=== PATIENT | male | born 1995 | race Caucasian/White ===

== ENCOUNTER 2017-07-15 12:00 | Emergency (ER) | payer OTHER ==
--- NOTE | 2017-07-15 12:19 | ER Document Report ---
ED Psych Disorder / Suicide - General Chief Complaint: Psych Problem Stated Complaint: PSYCH EVAL Time Seen by Provider: 07/15/17 12:17 Notes: 21-year-old male patient with suicidal ideation, wants mental health evaluation and treatment. I have greeted and performed a rapid initial assessment of this patient. A comprehensive ED assessment and evaluation of the patient, analysis of test results and completion of the medical decision making process will be conducted by additional ED providers. TRAVEL OUTSIDE OF THE [place] IN LAST 30 DAYS: No - Related Data Allergies/Adverse Reactions: No Known Allergies Allergy (Unverified 07/15/17 12:13) Physical Exam - Vital signs Vitals: Temp Pulse Resp BP Pulse Ox 98.3 F 89 18 135/78 H 97 07/15/17 12:06 07/15/17 12:06 07/15/17 12:06 07/15/17 12:06 07/15/17 12:06 Course - Vital Signs Vital signs: Temp Pulse Resp BP Pulse Ox 98.3 F 89 18 135/78 H 97 07/15/17 12:06 07/15/17 12:06 07/15/17 12:06 07/15/17 12:06 07/15/17 12:06
[2017-07-15 12:45] LABS: ABSOLUTE MONOCYTES (AUTO) 0.4 10^3/uL (0.1-1.4); ABSOLUTE NEUT (AUTO) 4.1 10^3/uL (1.7-8.2); BASOPHILS % (AUTO) 0.3 % (0-2); EOSINOPHILS % (AUTO) 0.4 % (0-6); HEMATOCRIT 42.9 % (37.9-51.0); HEMOGLOBIN 14.9 g/dL (13.5-17.0); LYMPHOCYTES % (AUTO) 18.5 % (13-45); MEAN CORPUSCULAR HEMOGLOBIN 29.1 pg (27.0-33.4); MEAN CORPUSCULAR HGB CONC 34.8 g/dL (32.0-36.0); MEAN CORPUSCULAR VOLUME 84 fl (80-97); MONOCYTES % (AUTO) 6.9 % (3-13); PLATELET COUNT 239 10^3/uL (150-450); RED BLOOD COUNT 5.12 10^6/uL (4.35-5.55); RED CELL DISTRIBUTION WIDTH 12.8 % (11.5-14.0); SEGMENTED NEUTROPHILS % (AUTO) 73.9 % (42-78); TOTAL CELLS COUNTED % (AUTO) 100 %; WHITE BLOOD COUNT 5.5 10^3/uL (4.0-10.5)
[2017-07-15 13:02] LABS: ACETAMINOPHEN < 10 ug/mL (10-30); ALANINE AMINOTRANSFERASE 31 U/L (21-72); ALBUMIN 5.1 g/dL (3.5-5.0); ALCOHOL < 10 mg/dL (NONE DETECTED); ALKALINE PHOSPHATASE 43 U/L (38-126); ANION GAP 11 (5-19); ASPARTATE AMINO TRANSFERASE 24 U/L (17-59); BILIRUBIN,DIRECT 0.4 mg/dL (0.0-0.4); BILIRUBIN,TOTAL 1.1 mg/dL (0.2-1.3); BLOOD UREA NITROGEN 15 mg/dL (7-20); CALCIUM 10.5 mg/dL (8.4-10.2); CARBON DIOXIDE 28 mmol/L (22-30); CHLORIDE 105 mmol/L (98-107); GLUCOSE 123 mg/dL (75-110); POTASSIUM 4.2 mmol/L (3.6-5.0); SALICYLATE < 1.0 mg/dL (2.0-20.0); SODIUM 143.9 mmol/L (137-145); TOTAL PROTEIN 7.7 g/dL (6.3-8.2)
[2017-07-15 13:21] LABS: APPEARANCE,URINE CLEAR; BILIRUBIN,URINE NEGATIVE (NEGATIVE); COLOR,URINE AMBER; GLUCOSE, URINE NEGATIVE (NEGATIVE); KETONES,URINE TRACE mg/dL (NEGATIVE); LEUKOCYTE ESTERASE,URINE NEGATIVE (NEGATIVE); NITRITE,URINE NEGATIVE (NEGATIVE); PROTEIN,URINE NEGATIVE (NEGATIVE); URINE SPECIFIC GRAVITY 1.024
--- NOTE | 2017-07-15 13:30 | ER Document Report ---
ED Psych Disorder / Suicide - General Mode of Arrival: Ambulatory Information source: Patient TRAVEL OUTSIDE OF THE [place] IN LAST 30 DAYS: No - HPI Patient complains to provider of: Suicidal ideation Onset: This morning Onset was: Gradual Quality of pain: No pain Suicide Risk Factors: Male, Substance abuse Associated symptoms: Anxious, Depressed Similar symptoms previously: Yes - LIFELONG, OFF & ON Recently seen / treated by doctor: No <ROSS DOUGLASS - Last Filed: 07/15/17 13:27> <GRADY KHAN - Last Filed: 07/16/17 13:29> - General Chief Complaint: Psych Problem Stated Complaint: PSYCH EVAL Time Seen by Provider: 07/15/17 12:17 - Related Data Allergies/Adverse Reactions: No Known Allergies Allergy (Unverified 07/15/17 12:13) Past Medical History - General Information source: Patient - Social History Smoking Status: Current Every Day Smoker Chew tobacco use (# tins/day): No Smoking Education Provided: No Frequency of alcohol use: Rare Drug Abuse: Marijuana Lives with: Friend Family History: None Patient has suicidal ideation: Yes Patient has homicidal ideation: Yes - Past Medical History Cardiac Medical History: Reports: None Pulmonary Medical History: Reports: None EENT Medical History: Reports: None Neurological Medical History: Reports: None Endocrine Medical History: Reports: None Renal/ Medical History: Reports: None. Denies: Hx Peritoneal Dialysis Malignancy Medical History: Reports None GI Medical History: Reports: Other - GASTROPARESIS, YRS AGO, RESOLVED Musculoskeltal Medical History: Reports None Psychiatric Medical History: Reports: Hx Depression Traumatic Medical History: Reports: None Surgical Hx: Negative <EVONNEROSS - Last Filed: 07/15/17 13:27> Review of Systems - Review of Systems Constitutional: No symptoms reported EENT: No symptoms reported Cardiovascular: No symptoms reported Respiratory: No symptoms reported Gastrointestinal: No symptoms reported Genitourinary: No symptoms reported Musculoskeletal: No symptoms reported Skin: No symptoms reported Neurological/Psychological: See HPI <ROSS DOUGLASS - Last Filed: 07/15/17 13:27> Physical Exam - Vital signs Interpretation: Normal - General General appearance: Appears well, Alert In distress: None - HEENT Head: Normocephalic Eyes: Normal Conjunctiva: Normal Ears: Normal Nasal: Normal Mouth/Lips: Normal Mucous membranes: Normal - Respiratory Respiratory status: No respiratory distress Breath sounds: Normal - Cardiovascular Rhythm: Regular Heart sounds: Normal auscultation Murmur: No - Abdominal Inspection: Normal Distension: No distension Bowel sounds: Normal - Back Back: Normal - Extremities General upper extremity: Normal inspection General lower extremity: Normal inspection - Neurological Neuro grossly intact: Yes Cognition: Normal Orientation: AAOx4 - Psychological Associated symptoms: Anxious - Skin Skin Temperature: Warm Skin Moisture: Dry Skin Color: Normal Skin Turgor: Elastic <ROSS DOUGLASS - Last Filed: 07/15/17 13:27> - Vital signs Vitals: Temp Pulse Resp BP Pulse Ox 98.3 F 89 18 135/78 H 97 07/15/17 12:06 07/15/17 12:06 07/15/17 12:06 07/15/17 12:06 07/15/17 12:06 Course - Laboratory Result Diagrams: 07/15/17 12:33 07/15/17 12:33 <ROSS DOUGLASS - Last Filed: 07/15/17 13:27> - Laboratory Result Diagrams: 07/15/17 12:33 07/15/17 12:33 <GRADY KHAN - Last Filed: 07/16/17 13:29> - Vital Signs Vital signs: Temp Pulse Resp BP Pulse Ox 97.3 F 67 16 125/71 99 07/16/17 07:00 07/16/17 07:00 07/16/17 07:00 07/16/17 07:00 07/16/17 07:00 - Laboratory Laboratory results interpreted by me: 07/15/17 07/15/17 12:33 13:05 Glucose 123 H Calcium 10.5 H Albumin 5.1 H Urine Ketones TRACE H Urine Urobilinogen 4.0 H Salicylates < 1.0 L Acetaminophen < 10 L Discharge <ROSS DOUGLASS - Last Filed: 07/15/17 13:27> <GRADY KHAN - Last Filed: 07/16/17 13:29> - Discharge Clinical Impression: Substance abuse Condition: Stable Disposition: HOME, SELF-CARE Additional Instructions: DEPRESSION: Your evaluation reveals that you have mental depression. While symptoms may be vague, they often include disturbance of sleep, fatigue, loss of appetite , and general loss of interest in life. While depression may be a side effect of drugs, or a reaction to a major change in your life, many cases have no known cause. If depression is acute, and related to a major loss in your life, you can expect it to clear completely with time. If you have been depressed a long time , are prone to repeated bouts of depression or low mood, or have been thinking of suicide, get help. Depression can be treated with anti-depressant medication and counselling. Long-term depression will often take a few weeks to clear, even with appropriate medication. Follow-up care is important. FOLLOW-UP CARE You are recommended to follow through with your substance abuse treatment plan with [facility].~ If you experience worsening or a significant change in your symptoms, notify the physician immediately or return to the Emergency Department at any time for re-evaluation.
[2017-07-15 13:40] LABS: URINE AMPHETAMINES SCREEN NEGATIVE; URINE BARBITURATES SCREEN NEGATIVE; URINE BENZODIAZEPINES SCREEN NEGATIVE; URINE COCAINE SCREEN NEGATIVE; URINE MARIJUANA (THC) SCREEN UNCONFIRMED POSITIVE; URINE METHADONE SCREEN NEGATIVE; URINE PHENCYCLIDINE SCREEN NEGATIVE
[2017-07-15] MEDS ORDERED: NICOTINE 21 MG/24 HR PATCH.TD24 TD ONE ×3 (15:28→20:19)
--- NOTE | 2017-07-15 15:56 | PSYCHOLOGICAL NOTE ---
Psych Note - Psych Note Psych Note: Reason for evaluation: Suicidal Ideation Eval: 3:00 pm Final Disposition Contact Permissions: Cal Malhotra ( Patient's mother) [phone] [facility] ( [address]; their fax number is [phone]) Patient is a 21-year-old male. Patient reports he was brought in by his boss from the [facility]. Patient reports he was speaking with his mother yesterday evening about all of his "thoughts", and she stated he should get help. Patient reports he was having suicidal thoughts while at home and curled up into a ball and sat in the corner. Patient reports he then called his mom who is a emergency room nurse that lives in [place]. Patient reports he received a diagnosis around 8-9 years ago for chronic depression. Patient reports he was in the but is now out and stayed in [facility]. Patient reports alcoholism runs in his family. Patient reports as a child he was on Adderall for around 5-12 years for ADHD. Patient reports he did not want to take them and stopped taking them because he was tired of being different. Patient reports he has never been to an inpatient psychiatric hospital. Patient reports he describes himself at this moment as being in a state of "monumental sadness". Patient reports he does not want to be sad anymore because his sadness turns into anger. Patient stated "I want to be the man I want to be I am tired of putting on a faade". Patient reports he feels as if everything is his fault and that he is always trying hard for everything to look normal. Patient reports when one thing happens everything comes crashing down. Patient reports his mother thinks that it is due to all the losses he has experienced growing up. Patient reports that he is too easily influenced and intuitive, and described himself as a "liar". Patient reports he feels responsible for people's happiness. Patient reports his mother told him this is the first step to getting help. Patient reports it is difficult talking about his feelings. Patient reports several years ago he jumped off a 3 story building in [facility] and stated nothing happened to him, and he was not sent anywhere for having the suicidal attempt. Collateral information: Cal malhotra (patient's mother) [phone] Patient's mother reports patient is limited in what he says to her. Patient's mother reports patient suffers from depression and anxiety and states it was "really bad" 9 years ago when he had his first episode after his grandfather . Patient's mother reports she feels patient has some underlying issues from not working out the of his aunt who 8 years ago from alcoholism. Patient's mother reports patient was really close to both his aunt and grandfather. Patient's mother reports patient has had a hard time dealing with getting out of the [employer] a year ago and homelessness. Patient's mother reports patient was having to couch surf for 6 months after getting out of the [employer]. Patient's mother reports patient sometimes slept on the street but stated that he wanted to make it on his own and did not know where to go for help while in [place]. Patient's mother reports patient admitted to her that he smokes weed on a regular basis and tells her it is for medicinal purposes to treat his own depression anxiety. Patient's mother reports she has been working behind the scenes because she feels her son is self-medicating and states that she talked to [facility] intake person John who is in [place] and states that all he needs to do is make a phone call they will do the interview and then pick him up from [facility]. Patient's mother reports patient has admitted to her recently that he was suicidal in the past and stated he wanted to drown himself in the bathtub but could not do it because he wanted to be here for his mom and could not do that to her. Patient's mother reports it is really hard for patient to ask for help it is a huge deal for him. Patient's mother reports patient has a history of alcohol abuse and used to drink to where he blacked out and could not remember that he got into fights. Patient's mother reports patient told her he stopped drinking in February of last year but is not sure if patient has been honest about his drinking. Patient's mother reports that when he was 12 years old he tried an antidepressant and refused to take it. Patient's mother reports she felt her son "grew out of his ADHD "as he was prescribed Adderall as a child. Patient's mother reports that last night she asked him if he was suicidal and he told her her was one step away but did not know which direction he would take. Patient's mother reports that she feels patient is overwhelmed with everything. Patient's mother reports she feels his primary area that he needs help in is substance abuse. Patient's mother reports patient needs to complete an intake with [facility] in [place]. Diagnosis: Per Hx 311 ( F32.9) Unspecified Depressive Disorder Per Hx 300.00 ( F41.9) Unspecified Anxiety Disorder 292.9 ( F19.99) unspecified other substance related disorder Impression/Plan: Recommendation for patient to be transferred to a substance use / mental health facility ( dual diagnosis) . Clinician coordinated with unit coordinator at [facility] ( [place]). The unit coordinator stated they are completing the assessment over the telephone with the patient, and stated mom agreed to work out financials before transport is arranged. According to unit coordinator, patient would not be transported until tomorrow. Clinician observed patient is tearful, and anxious apologizing repeatedly to clinician for asking for help. Clinician observed patient's history of depression and current substance abuse is suitable for a dual diagnosis facility, patient is able to voluntarily transition into the Recovery facility. Physician in agreement with plan. Consulted with Dr. Arreaga regarding the management and care of patient.
--- NOTE | 2017-07-15 16:42 | EKG REPORT ---
SEVERITY:- NORMAL ECG - SINUS RHYTHM : Confirmed by: Keely Walters 15-Jul-2017 16:41:23
[2017-07-15] MEDS ORDERED: HYDROXYZINE PAMOATE 50 MG CAPSULE PO ONE (23:16)
[2017-07-16 07:11] VITALS: BP 125/71
--- NOTE | 2017-07-16 09:11 | PSYCHOLOGICAL NOTE ---
Psych Note - Psych Note Psych Note: Reason for evaluation: Suicidal Ideation Contact Permissions: Cal Malhotra ( Patient's mother) [phone] [facility] ( [address]; their fax number is [phone]) Clinician conducted checking with patient Patient disclosed that he is feeling better today; however, states "I am used to the curve... I am just waiting for the re-curve... I do not know if I am strong enough for the next time." Patient describes long-standing depression with the use of substances in attempt to self medicate. He continued disclosed that when he is depressed and you offer him any type of drug he will not hesitate to use it. When he is not feeling depressed he may sit and think about if he wants to do or not. Patient does not verbalize or indicate any feelings of ever denying flat out the want to use substances if offered. Patient is demonstrating some psychomotor agitation which includes shaking his leg and fixing organizing his room. Patient verbalizes some anxiety and nervousness on seeking help "this is a big step... I am really scared... But I know I need to fight this.... Even though I feel good now... I know that I will use later." Patient does verbalize some concern that he should be able to do this on his own and is "taking a bed" away from somebody who really needs help. Patient denies any suicidal ideation or thoughts of wanting to harm himself stating "I do not want to go back to the way I was... a need to move forward and get help." Clinician spoke with [facility], Matthew, who disclosed the patient has been coming cleared and transportation has been set up. At this time it looks like transportation will be arriving to [facility] approximately 5 or 6 PM today. Diagnosis: Per Hx 311 ( F32.9) Unspecified Depressive Disorder Per Hx 300.00 ( F41.9) Unspecified Anxiety Disorder 292.9 ( F19.99) unspecified other substance related disorder Impression/Plan: Recommendation for patient to be transferred to a substance use / mental health facility ( dual diagnosis) . The behavioral Health Team coordinated with conference services coordinator at [facility] ( [place]). Patient's history of depression and current substance abuse is suitable for a dual diagnosis facility, patient is able to voluntarily transition into the Recovery facility. Patient was very open with clinician and discussed his concerns. physician in agreement with plan. Consulted with Dr. Arreaga regarding the management and care of patient.
--- NOTE | 2017-07-16 11:13 | ER Document Report ---
Doctor's Note Notes: 07/16/17 11:12 Chart reviewed including laboratory findings, H&P, mental health notes, and vital signs, patient has been resting comfortably, plan is to discharge patient today into dual diagnosis, apparently addiction treatment [facility] is coming to pick patient up at this facility to transport him to their facility for further evaluation and treatment, otherwise patient remained stable, 07/16/17 16:17 patient requested a NicoDerm patch, otherwise no complaints today Discharge - Discharge Clinical Impression: Substance abuse Condition: Stable Disposition: HOME, SELF-CARE Additional Instructions: DEPRESSION: Your evaluation reveals that you have mental depression. While symptoms may be vague, they often include disturbance of sleep, fatigue, loss of appetite , and general loss of interest in life. While depression may be a side effect of drugs, or a reaction to a major change in your life, many cases have no known cause. If depression is acute, and related to a major loss in your life, you can expect it to clear completely with time. If you have been depressed a long time , are prone to repeated bouts of depression or low mood, or have been thinking of suicide, get help. Depression can be treated with anti-depressant medication and counselling. Long-term depression will often take a few weeks to clear, even with appropriate medication. Follow-up care is important. FOLLOW-UP CARE You are recommended to follow through with your substance abuse treatment plan with [facility].~ If you experience worsening or a significant change in your symptoms, notify the physician immediately or return to the Emergency Department at any time for re-evaluation.
[2017-07-16] MEDS ORDERED: NICOTINE 14 MG/24 HR PATCH.TD24 TD ONE (15:23)
== END 2017-07-16 19:00 | disposition home or self-care (01) ==
LOC: ER 12:00
DX: F12.10 Cannabis abuse, uncomplicated (principal); F17.200 Nicotine dependence, unspecified, uncomplicated; F32.9 Major depressive disorder, single episode, unspecified; R45.851 Suicidal ideations; F41.9 Anxiety disorder, unspecified; Z81.1 Family history of alcohol abuse and dependence
CPT/HCPCS: 36415; 80053; 80307; 81001; 85025; 93005; 93010; 99285